=== PATIENT | female | born 1960 | race American Indian/Alaskan Native ===

== ENCOUNTER 2019-03-18 08:48 | Day surgery (SDC) | payer MEDICARE ==
--- NOTE | 2019-03-18 11:19 | Short Stay Summary ---
Short Stay Documentation Date of service: 03/18/19 - History Principal diagnosis: thyroid nodule - Allergies and Medications Current Medications: Allergies escitalopram oxalate [From Lexapro] Allergy (Severe, Verified 03/18/19 09:30) Cough Penicillins Allergy (Severe, Verified 03/18/19 09:31) Shortness of Breath ibuprofen [From Motrin] Allergy (Intermediate, Verified 03/18/19 09:31) Shortness of Breath, rash Home Medications Medication Instructions Recorded Confirmed Last Taken Type Allopurinol [Zyloprim] 100 mg PO QDAY 05/12/16 05/12/16 05/11/16 History Aspirin [Adult Low Dose Aspirin EC] 81 mg PO DAILY 05/12/16 05/12/16 05/11/16 History Atenolol [Tenormin] 50 mg PO DAILY 05/12/16 05/12/16 05/11/16 History Diclofenac EC [Voltaren] 25 mg PO TID 05/12/16 05/12/16 05/11/16 History Furosemide [Lasix TAB] 40 mg PO QDAY 05/12/16 05/12/16 05/11/16 History Orphenadrine Citrate [Orphenadrine 100 mg PO DAILY 05/12/16 05/12/16 05/11/16 History Citrate ER] Paricalcitol 1 mcg PO BID 05/12/16 05/12/16 05/11/16 History Pregabalin [Lyrica] 75 mg PO BID 05/12/16 05/12/16 05/11/16 History Spironolactone [Aldactone] 50 mg PO QDAY 05/12/16 05/12/16 05/11/16 History Vit D3/Folic Acid/B2/B6/B12 1 tab PO DAILY 05/12/16 05/12/16 05/11/16 History ALBUTEROL Inhaler (OR & NICU) 2 puff IH QID PRN #1 inhalation 05/13/16 Unknown Rx [ProAir HFA Inhaler] HYDROcodone/APAP 5-325 [[place] 1 each PO Q6HR PRN #12 tablet 05/13/16 Unknown Rx 5/325] predniSONE [Deltasone] 20 mg PO QDAY #5 tab 05/13/16 Unknown Rx - Physical exam General appearance: no acute distress HEENT: Other (palpable 2cm nodule in superior left thyroid lobe) - Brief post op/procedure progress note Date of procedure: 03/18/19 Pre-op diagnosis: thyroid nodule Post-op diagnosis: same Procedure: US thyroid FNA Anesthesia: local Findings: 2cm left thyroid nodule Surgeon: BESSIE AGARWAL Estimated blood loss: none Pathology: list (FNA x 3) Specimen disposition: to lab Condition: stable - Hospital course Hospital course: uneventful - Disposition Condition at discharge: Good Disposition: [id number] TO HOME OR SELFCARE Short Stay Discharge Plan Follow up with: DAVID CHILD MD [Primary Care Provider] - 7 Days
[2019-03-18 13:13] VITALS: BP 153/82
--- NOTE | 2019-03-18 15:23 | Ultrasound Report ---
ULTRASOUND BIOPSY THYROID History: Left thyroid lobe nodule. Description of procedure: Informed consent was obtained. Sterile technique was utilized. 1% lidocaine for skin anesthesia. Using ultrasound guidance, 3 fine needle aspirations were obtained from a 2.3 x 1.3 cm solid nodule in the superior left thyroid lobe. Samples were deemed borderline to adequate by the pathologist on site. No complications. Impression: Successful fine needle aspiration of a left thyroid lobe nodule.
== END 2019-03-18 12:10 | disposition home or self-care (01) ==
LOC: CATHLABREC 08:48 → EDSTATUS 09:00 → CATHLABREC 12:10
PROVIDERS: ATTEND Family Medicine
DX: E04.1 Nontoxic single thyroid nodule (principal); I12.0 Hypertensive chronic kidney disease with stage 5 chronic kidney disease or end stage renal disease; N18.6 End stage renal disease; J45.909 Unspecified asthma, uncomplicated; M19.90 Unspecified osteoarthritis, unspecified site; F41.9 Anxiety disorder, unspecified; Z98.890 Other specified postprocedural states; Z83.3 Family history of diabetes mellitus; Z88.0 Allergy status to penicillin; Z88.8 Allergy status to other drugs, medicaments and biological substances; Z79.899 Other long term (current) drug therapy; Z79.82 Long term (current) use of aspirin; Z90.49 Acquired absence of other specified parts of digestive tract; Z90.710 Acquired absence of both cervix and uterus; Z99.2 Dependence on renal dialysis; Z87.440 Personal history of urinary (tract) infections; Z80.3 Family history of malignant neoplasm of breast; Z80.0 Family history of malignant neoplasm of digestive organs; Z82.49 Family history of ischemic heart disease and other diseases of the circulatory system
CPT/HCPCS: 10005; 60100; 76942; 88112; 88172; 88173; 88177; 88305

== ENCOUNTER 2019-10-08 10:12 | Outpatient (CLI) | payer MEDICARE ==
--- NOTE | 2019-10-08 14:23 | Mammography Report ---
BONE DEXA CLINICAL: Postmenopausal. TECHNIQUE: 2 site bone DEXA performed on an Hologic scanner. FINDINGS: The average BMD of the lumbar spine L1-L4 is 1.264g/cm squared with a T score of +2.0 and a Z score o f +2.7. The average total BMD of the left hip is 0.994 g/cm squared with a T score of +0.4and a Z score of +0 .6. IMPRESSION: 1. WHO classification: Normal with average fracture risk based on spine measurements. 2. WHO classification Normal with average fracture risk based on left hip measurements. RECOMMENDATION: Clinical correlation and routine screening. Definitions: BMD equal bone mineral density T score = BMD related to peak bone mass of young adult (Benedict expressed an standard deviation) Z score = age-matched BMD expressed in SD World health organization (WHO) diagnostic criteria Normal T score greater than equal to 1 standard deviation Osteopenia T score between -1 and -2.4 standard deviation Osteoporosis T score -2.5 standard deviation or below. Note: BMD is not the only risk factor for fracture; also consider factors such as the patient's age, risk of falling, previous osteoporotic fracture, family history of osteoporotic fractures, current sm oker and low body weight. Z scores are not calculated if greater than 80 years of age. Signer Name: Ryan Conner MD Signed: 10/08/2019 2:19 PM Workstation Name: [id number]
== END 2019-10-08 10:13 | disposition home or self-care (01) ==
LOC: MAMMO 10:12
PROVIDERS: ATTEND Family Medicine
DX: Z13.820 Encounter for screening for osteoporosis (principal); M19.90 Unspecified osteoarthritis, unspecified site; M79.7 Fibromyalgia; Z78.0 Asymptomatic menopausal state
CPT/HCPCS: 77080